=== PATIENT | male | born 1980 | race Caucasian/White ===

== ENCOUNTER 2018-09-11 12:21 | Inpatient (IN) | payer MEDICAID ==
[2018-09-11 14:59] LABS: ADD MAN DIFF? NO
[2018-09-11 15:03] LABS: BASOPHIL # 0.1 10^3/ul (0.0-0.1); BASOPHILS % 0.7 % (0.0-2.0); EOSINOPHILS # 0.2 10^3/ul (0.0-0.5); EOSINOPHILS % 1.9 % (0.0-7.0); HEMATOCRIT 47.1 % (42.0-52.0); HEMOGLOBIN 16.1 g/dl (14.0-18.0); LYMPHOCYTES % 11.4 % (15.0-51.0); MEAN CORPUSCULAR HEMOGLOBIN 30.4 pg (29.0-33.0); MEAN CORPUSCULAR HGB CONC 34.2 g/dl (32.0-37.0); MEAN PLATELET VOLUME 11.3 fl (7.4-10.4); MONOCYTE # 0.6 10^3/ul (0.3-0.9); MONOCYTES % 7.1 % (0.0-11.0); NEUTROPHIL # 6.9 10^3/ul (1.6-7.5); NEUTROPHILS % 77.4 % (39.0-77.0); PLATELET COUNT 159 10^3/UL (140-415); RED BLOOD COUNT 5.29 10^6/ul (4.70-6.10); RED CELL DISTRIBUTION WIDTH 12.4 % (11.5-14.5)
[2018-09-11 15:03] LABS: WHITE BLOOD COUNT 8.9 10^3/ul (4.8-10.8)
[2018-09-11] MEDS: morphine 4 MG/ML VIAL IV (15:03)
[2018-09-11] MEDS: ONDANSETRON 4 MG INJ IV (15:08)
[2018-09-11 15:28] LABS: ALANINE AMINOTRANSFERASE 48 IU/L (13-69); ALBUMIN/GLOBULIN RATIO 1.42; ALKALINE PHOSPHATASE 80 IU/L (42-121); ANION GAP 8 (5-13); ASPARTATE AMINO TRANSFERASE 36 IU/L (15-46); BILIRUBIN,INDIRECT 0.4 mg/dl (0-1.1); BILIRUBIN,TOTAL 0.4 mg/dl (0.2-1.3); BLOOD UREA NITROGEN 14 mg/dl (7-20); CALCIUM 8.8 mg/dl (8.4-10.2); CARBON DIOXIDE 27 mmol/L (21-31); CHLORIDE 102 mmol/L (97-110); CREATININE 0.85 mg/dl (0.61-1.24); Estimated GFR > 60 mL/min (>60); GLUCOSE 115 mg/dl (70-220); LIPASE 50 U/L (23-300); POTASSIUM 3.8 mmol/L (3.5-5.1); SODIUM 137 mmol/L (135-144); TOTAL PROTEIN 6.8 g/dl (6.1-8.1)
[2018-09-11] MEDS: HYDROmorphONE 0.5 MG/0.5 ML SYG IV (16:54)
[2018-09-11] MEDS: SOD CHLORIDE 0.9% 1,000 ML IV (16:54)
[2018-09-11] MEDS: SOD CHLORIDE 0.9% 100 ML (17:38)
[2018-09-11] MEDS: IOHEXOL 300MG/ML 150 ML BTL (17:39)
[2018-09-11] MEDS ORDERED: NACL 0.9% 3 ML SYG IV (19:00)
[2018-09-11] MEDS ORDERED: morphine 2 MG INJ IV (19:00)
[2018-09-11] MEDS: PIPER-TAZO 3.375 GM IV (PMX) 100 ML IVPB (19:02)
[2018-09-11] MEDS: DEXTROSE 5%-0.45% NACL 1,000 ML IV (19:25)
[2018-09-12] MEDS: ONDANSETRON (ODT) 4 MG TAB ODT (00:49)
[2018-09-12] MEDS: ACETAMINOPHEN 500 MG TAB PO (00:49)
[2018-09-12] MEDS: DEXTROSE 5%-0.45% NACL 1,000 ML IV ×2 (03:44→11:09)
[2018-09-12 06:26] LABS: ADD MAN DIFF? NO
[2018-09-12] MEDS: PIPER-TAZO 3.375 GM IV (PMX) 100 ML IVPB ×4 (06:35→17:00)
[2018-09-12] MEDS: PANTOPRAZOLE 40 MG INJ IV (06:36)
[2018-09-12 06:40] LABS: WHITE BLOOD COUNT 8.3 10^3/ul (4.8-10.8)
[2018-09-12 06:40] LABS: ABNORMAL IP MESSAGE 1; BASOPHILS % 0.5 % (0.0-2.0); EOSINOPHILS # 0.1 10^3/ul (0.0-0.5); EOSINOPHILS % 0.6 % (0.0-7.0); HEMATOCRIT 46.7 % (42.0-52.0); HEMOGLOBIN 15.7 g/dl (14.0-18.0); LYMPHOCYTES # 0.5 10^3/ul (0.8-2.9); LYMPHOCYTES % 6.4 % (15.0-51.0); MEAN CORPUSCULAR HEMOGLOBIN 30.3 pg (29.0-33.0); MEAN CORPUSCULAR HGB CONC 33.6 g/dl (32.0-37.0); MONOCYTE # 0.7 10^3/ul (0.3-0.9); MONOCYTES % 8.9 % (0.0-11.0); NEUTROPHIL # 6.8 10^3/ul (1.6-7.5); NEUTROPHILS % 81.9 % (39.0-77.0); PLATELET COUNT 133 10^3/UL (140-415); POSITIVE DIFF @See below; RED BLOOD COUNT 5.19 10^6/ul (4.70-6.10); RED CELL DISTRIBUTION WIDTH 12.5 % (11.5-14.5)
[2018-09-12 07:23] LABS: ALANINE AMINOTRANSFERASE 53 IU/L (13-69); ALBUMIN/GLOBULIN RATIO 1.37; ALKALINE PHOSPHATASE 74 IU/L (42-121); ANION GAP 11 (5-13); ASPARTATE AMINO TRANSFERASE 34 IU/L (15-46); BILIRUBIN,INDIRECT 0.5 mg/dl (0-1.1); BILIRUBIN,TOTAL 0.5 mg/dl (0.2-1.3); BLOOD UREA NITROGEN 8 mg/dl (7-20); CALCIUM 8.5 mg/dl (8.4-10.2); CARBON DIOXIDE 29 mmol/L (21-31); CHLORIDE 100 mmol/L (97-110); CREATININE 0.87 mg/dl (0.61-1.24); Estimated GFR > 60 mL/min (>60); GLUCOSE 107 mg/dl (70-220); MAGNESIUM 1.8 mg/dl (1.7-2.5); POTASSIUM 3.7 mmol/L (3.5-5.1); SODIUM 140 mmol/L (135-144); TOTAL PROTEIN 6.9 g/dl (6.1-8.1)
[2018-09-12] MEDS: ACETAMINOPHEN 1000MG/100ML IV 100 ML IVPB (09:26)
[2018-09-12 11:11] LABS: LACTIC ACID 1.2 mmol/L (0.5-2.0)
[2018-09-12 12:32] LABS: ADD UMIC NO; UR ASCORBIC ACID NEGATIVE (NEGATIVE); UR BILIRUBIN (Dip) NEGATIVE (NEGATIVE); UR BLOOD (Dip) NEGATIVE (NEGATIVE); UR CLARITY CLEAR (CLEAR); UR COLOR YELLOW (YELLOW); UR GLUCOSE (Dip) NEGATIVE (NEGATIVE); UR KETONES (Dip) NEGATIVE (NEGATIVE); UR LEUKOCYTE ESTERASE (Dip) NEGATIVE Leu/ul (NEGATIVE); UR NITRITE (Dip) NEGATIVE (NEGATIVE); UR SPECIFIC GRAVITY (Dip) 1.014 (1.003-1.030); UR TOTAL PROTEIN (Dip) NEGATIVE (NEGATIVE); UR UROBILINOGEN (Dip) NEGATIVE (NEGATIVE)
[2018-09-12] MEDS ORDERED: GUAIFENESIN/CODEINE 5ML CUP PO (13:00)
[2018-09-12] MEDS ORDERED: ACETAMINOPHEN 325 MG TAB PO (16:30)
[2018-09-12] MEDS ORDERED: ACETAMINOPHEN 325 MG TAB (16:55)
== END 2018-09-12 18:29 | disposition left against medical advice (07) | DRG 395 ==
LOC: E/R 12:21 → MS1 18:39
DX: K40.20 Bilateral inguinal hernia, without obstruction or gangrene, not specified as recurrent (principal); K43.9 Ventral hernia without obstruction or gangrene; K76.0 Fatty (change of) liver, not elsewhere classified; F17.210 Nicotine dependence, cigarettes, uncomplicated; E66.9 Obesity, unspecified; Z68.33 Body mass index [BMI] 33.0-33.9, adult
CPT/HCPCS: 36415; 74177; 80053; 81003; 83605; 83690; 83735; 85025; 87040; 96361; 96374; 96375; 99285-25